=== PATIENT | male | born 1990 | race Caucasian/White ===

== ENCOUNTER 2016-09-10 17:07 | Emergency (ER) | payer OTHER ==
[2016-09-10 17:47] VITALS: BP 130/76
--- NOTE | 2016-09-10 17:49 | UC ---
Shortness of Breath HPI - HPI Summary HPI Summary: sob x 5 days on exertion , more than 2 months hx of left lower leg swelling no known injury no chest pain , no smoking hx, pt. has been healthy ow . - History of Current Complaint Chief Complaint: UCRespiratory Stated Complaint: SOB 4 DAYS,LEFT LEG PAIN Time Seen by Provider: 09/10/16 17:16 Hx Obtained From: Patient Onset/Duration: Gradual Onset, Lasting Days, Still Present Timing: Constant Current Severity: Severe Dyspnea At: Exertion Aggrevating Factors: Movement Alleviating Factors: Nothing Associated Signs & Symptoms: Positive: Calf Pain/Swelling - left leg swelling. Negative: Cough (Productive), Cough (Nonproductive), Cough (Bloody Sputum), Wheezing, Chest Pain w/Cough, Chest Pain Unrelated to Cough, Chills, Diaphoresis , Nasal Congestion, Dizzy - Risk Factors Pulmonary Embolism: Negative Cardiac: Negative - Allergy/Home Medications Allergies/Adverse Reactions: Allergies Allergy/AdvReac Type Severity Reaction Status Date / Time No Known Allergies Allergy Verified 09/10/16 17:21 Home Medications: Home Medications Ibuprofen TAB* [Advil TAB*] 400 mg PO DAILY PRN 09/10/16 [History Confirmed ] Ibuprofen TAB* [Motrin TAB* 600 MG] 600 mg PO Q6H PRN 09/10/16 [History Confirmed 09/10/16] PMH/Surg Hx/FS Hx/Imm Hx Previously Healthy: Yes - Surgical History Surgical History: None - Family History Known Family History: Positive: Hypertension Negative: Diabetes - Social History Alcohol Use: Rare Substance Use Type: Marijuana Substance Use Comment - Amount & Last Used: 3 days ago Smoking Status (MU): Light Every Day Tobacco Smoker Type: eCigarettes Review of Systems Constitutional: Negative Skin: Negative Eyes: Negative ENT: Negative Respiratory: Shortness Of Breath Cardiovascular: Negative Musculoskeletal: Edema - left lower leg All Other Systems Reviewed And Are Negative: Yes Physical Exam Triage Information Reviewed: Yes Appearance: Well-Appearing, No Pain Distress, Well-Nourished Vital Signs: Initial Vital Signs Temp 98.9 F 09/10/16 17:10 Pulse 96 09/10/16 17:10 Resp 20 09/10/16 17:10 BP 132/96 09/10/16 17:10 Pulse Ox 97 09/10/16 17:10 Vital Signs Reviewed: Yes Eyes: Positive: Conjunctiva Clear ENT: Positive: Normal ENT inspection, Hearing grossly normal, Pharynx normal Neck: Positive: Supple, Nontender, No Lymphadenopathy Respiratory: Positive: Chest non-tender, Lungs clear, Normal breath sounds Cardiovascular: Positive: RRR, No Murmur, Pulses Normal Abdominal Exam: Normal Musculoskeletal: Positive: Edema @ - left lower leg swelling , no calf tenderness, negative arnav sign Shortness of Breath Dx - Course Course Of Treatment: concern about PE/DVT. will have the pt. go to [facility] ED for eval and tx. spoke to Mrs. Borrero [employer] - Differential Dx/Diagnosis Provider Diagnoses: sob. left leg swelling Discharge - Discharge Plan Condition: Stable Disposition: TRANS HIGHER LVL OF CARE FAC
== END 2016-09-10 17:48 | disposition short-term general hospital (02) ==
LOC: UCCORT 17:07
DX: R06.02 Shortness of breath (principal); R60.0 Localized edema; F12.90 Cannabis use, unspecified, uncomplicated; F17.210 Nicotine dependence, cigarettes, uncomplicated
CPT/HCPCS: 99213; G0463